=== PATIENT | male | born 1965 | race American Indian/Alaskan Native ===

== ENCOUNTER 2018-03-07 10:16 | Emergency (ER) | payer BC ==
[2018-03-07 10:24] VITALS: BP 159/108
--- NOTE | 2018-03-07 12:18 | Emergency Department Report ---
HPI - General Chief Complaint: Abdominal Pain Time Seen by Provider: 03/07/18 11:55 - HPI HPI: This is a 53-year-old male with a history of hypertension controlled with medication who presents to ED complaining of urinary symptoms. Patient states this morning when he went to urinate he thought his so in the toilet and does not knows that came out of his penis or was started in the toilet. Patient states he was concerned it certainly came in to be evaluated. Patient denies burning or painful urination or seen blood in the urine. Patient denies penile discharge, scrotal swelling in scrotum pain, abnormal bowel movement. Patient states sometimes it gets or urinary urgency but otherwise no other symptoms. Patient states that he has not been taking his BP medication as regularly as issues because it makes him urinate a lot. He denies fevers/nausea/vomiting/ abdominal pelvic pain/chest pain or shortness of breath or headache ED Past Medical Hx - Past Medical History Previous Medical History?: Yes Hx Hypertension: Yes - Surgical History Past Surgical History?: No - Social History Smoking Status: Never Smoker Substance Use Type: Alcohol - Medications Home Medications: Home Medications Medication Instructions Recorded Confirmed Last Taken Type Hydrocodone Bit/Acetaminophen 1 each PO Q8H PRN #14 tablet 09/22/13 Unknown Rx [Lortab 7.5-500 mg] Ibuprofen [Motrin] 800 mg PO TID PRN #25 tablet 09/22/13 Unknown Rx ED Review of Systems ROS: Stated complaint: C/O PARASITE/TAPEWORM Other details as noted in HPI Constitutional: denies: chills, fever Eyes: denies: eye pain, eye discharge, vision change ENT: denies: ear pain, throat pain Respiratory: denies: cough, shortness of breath, wheezing Cardiovascular: denies: chest pain, palpitations Endocrine: no symptoms reported Gastrointestinal: denies: abdominal pain, nausea, diarrhea Genitourinary: urgency. denies: dysuria, frequency, hematuria, discharge, testicular pain, testicular mass Musculoskeletal: denies: back pain, joint swelling, arthralgia Skin: denies: rash, lesions Neurological: denies: headache, weakness, paresthesias Psychiatric: denies: anxiety, depression Hematological/Lymphatic: denies: easy bleeding, easy bruising Physical Exam - Physical Exam Vital Signs: Vital Signs 03/07/18 03/07/18 10:21 11:56 Temperature 98.5 F Pulse Rate 94 H Respiratory 16 18 Rate Blood Pressure 159/108 O2 Sat by Pulse 98 Oximetry Physical Exam: GENERAL: Alert and oriented x3, no apparent distress, Normal Gait, atraumatic. HEAD: Head is normocephalic and a-traumatic. EYES: Extra ocular muscles are intact. Pupils are equal, round, and reactive to light and accommodation. LUNGS: Symetrical with respiration, No wheezing, no rales or crackles, CTAB. HEART: S1, S2 present, regular rate and rhythm without murmur, no rubs, no gallops. Non tender to palpation ABDOMEN: No organomegaly was noted,Positive bowel sounds, soft, and non- distended. . Nontender to palpation on all Quadrants, NO CVA tenderness. BACK: Full range of motion, no spinal tenderness, nontender to palpation. NEUROLOGIC: The patient is cooperative with no focal neurologic deficits. SKIN: Warm and dry, No lesions, No ulceration or induration present. ED Course Vital Signs 03/07/18 03/07/18 10:21 11:56 Temperature 98.5 F Pulse Rate 94 H Respiratory 16 18 Rate Blood Pressure 159/108 O2 Sat by Pulse 98 Oximetry ED Medical Decision Making - Medical Decision Making 53-year-old male presents with urinary urgency and has a blood pressure ED course: Urinalysis shows no abnormalities Discussed the patient to go home and take his blood pressure medication as prescribed. Discussed with patient follow-up with his primary care physician Patient states understanding that he will go home and take his medication. Patient states he does have an appointment with his primary care on March 24 and will keep that appointment. I also discussed the care and make an appointment to be seen sooner. Vital signs are normal patient is in no acute or respiratory distress. Patient was asymptomatic in the ED. Critical care attestation.: If time is entered above; I have spent that time in minutes in the direct care of this critically ill patient, excluding procedure time. ED Disposition Clinical Impression: Worried well Hypertension Qualifiers: Hypertension type: unspecified Qualified Code(s): I10 - Essential (primary) hypertension Disposition: DC-01 TO HOME OR SELFCARE Is pt being admited?: No Does the pt Need Aspirin: No Condition: Stable Instructions: Chronic Hypertension (ED), Hypertension (ED) Additional Instructions: Make sure to follow up with the primary care physician as discussed. Take all your medications as you've been prescribed. If you have any worsening symptoms or develop new symptoms please return to ED immediately. Referrals: CECILY BUCKNER MD [Primary Care Provider] - 3-5 Days Forms: Work/School Release Form(ED) Time of Disposition: 13:40
[2018-03-07 13:16] LABS: Bilirubin,Urine NEG (Negative); Blood,Urine SM (Negative); Color,Urine Yellow (Yellow); Mucus,Urine FEW /HPF; Protein,Urine <15 mg/dL mg/dL (Negative); Urobilinogen,Urine < 2.0 mg/dL (<2.0)
== END 2018-03-07 14:02 | disposition home or self-care (01) ==
LOC: ED 10:16
DX: R39.15 Urgency of urination (principal); I10 Essential (primary) hypertension
CPT/HCPCS: 81001; 99283